=== PATIENT | female | born 1980 | race Caucasian/White ===

== ENCOUNTER 2019-07-14 16:22 | Emergency (ER) | payer OTHER ==
[2019-07-14] MEDS ORDERED: XYLOCAINE 1% HCL 20 ML MDV IJ ONE (16:23)
--- NOTE | 2019-07-14 16:35 | ERPHSYRPT ---
- History of Present Illness Time Seen by Provider: 07/14/19 16:25 Source: patient, family Physician History: cough, congestion, mild shortness of breath and a sore throat for the last 2 days. Daughter has a bronchitis. It hurts to breathe at times. Also has a swelling on Left Mid back and she is concerned about it Timing/Duration: day(s) (2) Cough Quality/Degree: moderate, productive cough Possible Cause: occasional episodes Modifying Factors: Improves With: coughing, deep breath Associated Symptoms: cough, earache, shortness of breath, sore throat, No fever , No chills, No chest pain/soreness, No dizziness, No facial pain, No headache, No lightheadedness, No muscle aches, No nasal congestion, No nasal drainage, No sinus infection International travel in last 2 weeks: No Allergies/Adverse Reactions: No Known Drug Allergies Allergy (Unverified 07/14/19 16:28) - Review of Systems Constitutional: No Fever, No Chills Eyes: No Symptoms Ears, Nose, & Throat: No Symptoms Respiratory: Cough, No Dyspnea Cardiac: No Chest Pain, No Edema, No Syncope Abdominal/Gastrointestinal: No Abdominal Pain, No Nausea, No Vomiting, No Diarrhea Genitourinary Symptoms: Other (LMP 2 weeks ago. Denies any chance of being . Does not want to be tested. Has a history of T.L), No Dysuria Musculoskeletal: Other (swelling on the left mid back for months it has grown bigger recently.), No Back Pain, No Neck Pain Skin: No Rash Neurological: No Dizziness, No Focal Weakness, No Sensory Changes Psychological: No Symptoms Endocrine: No Symptoms All Other Systems: Reviewed and Negative - Nursing Vital Signs Nursing Vital Signs: Initial Vital Signs Temperature 98 F 07/14/19 16:23 Pulse Rate 103 H 07/14/19 16:23 Respiratory Rate 18 07/14/19 16:23 Blood Pressure 146/91 07/14/19 16:23 O2 Sat by Pulse Oximetry 100 07/14/19 16:23 Pain Scale Pain Intensity 4 - Physical Exam General Appearance: no apparent distress, alert, other (patient examined in the presence of her her and daughter.) Eye Exam: PERRL/EOMI, eyes nml inspection Ears, Nose, Throat Exam: normal ENT inspection, TMs normal, pharynx normal, moist mucous membranes Neck Exam: normal inspection, non-tender, supple, full range of motion Respiratory Exam: normal breath sounds, lungs clear, No respiratory distress Cardiovascular Exam: regular rate/rhythm, normal heart sounds Gastrointestinal/Abdomen Exam: soft, No tenderness Back Exam: normal inspection, No CVA tenderness, No vertebral tenderness Extremity Exam: normal inspection, normal range of motion Neurologic Exam: alert, oriented x 3, cooperative, normal mood/affect, sensation nml, No motor deficits Skin Exam: normal color, warm, dry, No rash Lymphatic Exam: No adenopathy SpO2 Interpretation: normal O2 Delivery: Room Air - CT Exams Chest CT Interpretation: Discussed w/radiologist, Other (nothing acute) Ordered Tests: Active Orders 24 hr Category Date Time Status CHEST WITHOUT CONTRAST [CT] Stat Exams 07/14/19 16:41 Taken Respiratory Therapy Assessment ONCE RT 07/14/19 16:47 Active Medication Summary Generic Name Dose Route Start Last Admin Trade Name Freq PRN Reason Stop Dose Admin Prednisone 20 mg 07/15/19 16:45 07/14/19 17:22 Deltasone 20 Mg PO 07/15/19 16:46 20 mg STAT ONE Administration Discontinued Medications Generic Name Dose Route Start Last Admin Trade Name Freq PRN Reason Stop Dose Admin Albuterol/Ipratropium 3 ml 07/14/19 16:35 07/14/19 16:44 Duoneb 0.5-3 Mg/3 Ml Neb IH 07/14/19 16:36 3 ml STAT ONE Administration Albuterol/Ipratropium Confirm 07/14/19 16:41 Duoneb 0.5-3 Mg/3 Ml Neb Administered 07/14/19 16:42 Dose 3 ml IH .STK-MED ONE Azithromycin 500 mg 07/14/19 16:39 07/14/19 17:23 Zithromax 250 Mg Tablet PO 07/14/19 16:40 500 mg STAT ONE Administration Azithromycin Confirm 07/14/19 17:05 Zithromax 250 Mg Tablet Administered 07/14/19 17:06 Dose 250 mg .ROUTE .STK-MED ONE Azithromycin Confirm 07/14/19 17:24 Zithromax 250 Mg Tablet Administered 07/14/19 17:25 Dose 250 mg .ROUTE .STK-MED ONE Ceftriaxone Sodium 1,000 mg 07/14/19 16:39 07/14/19 17:25 Rocephin 1000 Mg Inj IM 07/14/19 16:40 1,000 mg STAT ONE Administration Ceftriaxone Sodium Confirm 07/14/19 17:05 Rocephin 1000 Mg Inj Administered 07/14/19 17:06 Dose 1,000 mg .ROUTE .STK-MED ONE Prednisone Confirm 07/14/19 17:05 Deltasone 20 Mg Administered 07/14/19 17:06 Dose 20 mg .ROUTE .STK-MED ONE - Progress Progress: improved Air Movement: good Progress Note: 07/14/19 18:19 consultation to quit smoking. Also discussed the CT results with the patient and told her to follow up with PCP so that they can get her facial a detailed report of the CAT scan. Clinically the swelling she has it looks like a lipoma. Blood Culture(s) Obtained: No Antibiotics given: No Counseled pt/family regarding: diagnosis, need for follow-up, rad results, smoking cessation - Departure Departure Disposition: Home Clinical Impression: Lipoma of back Acute bronchitis Qualifiers: Bronchitis organism: unspecified organism Qualified Code(s): J20.9 - Acute bronchitis, unspecified Condition: Fair Critical Care Time: No Referrals: SARIAH CHEN [Primary Care Provider] - 07/16/19 Instructions: Cough, Adult (DC), Acute Bronchitis Additional Instructions: ffollowup with PCP on the CT scan results and also follow up with surgeon for further evaluation of lipoma on her back. Prescriptions: Albuterol 8 gm Mdi Hfa [Ventolin Hfa MDI] 8 gm IH Q6HPRN PRN #1 inh PRN Reason: Shortness Of Breath Azithromycin 250 mg [Zithromax 250 MG TABLET] 250 mg PO ZPACK #6 tablet
[2019-07-14] MEDS ORDERED: DUONEB 0.5-3 MG/3 ml Neb IH ONE (16:41)
[2019-07-14] MEDS: DUONEB 0.5-3 MG/3 ml Neb IH ONE (16:44)
[2019-07-14] MEDS ORDERED: Zithromax 250 MG TABLET ONE ×2 (17:05→17:24)
[2019-07-14] MEDS ORDERED: DELTASONE 20 MG ONE (17:05)
[2019-07-14] MEDS ORDERED: Rocephin 1000 MG INJ ONE (17:05)
[2019-07-14] MEDS: DELTASONE 20 MG PO ONE (17:22)
[2019-07-14] MEDS: Zithromax 250 MG TABLET PO ONE (17:23)
[2019-07-14] MEDS: Rocephin 1000 MG INJ IM ONE (17:25)
[2019-07-14 18:06] VITALS: BP 99/65; PULSE 86; O2SAT 99
--- NOTE | 2019-07-15 09:12 | XRAY ---
Indication: Cough and congestion. Left back lump. Multiple contiguous axial images obtained through the chest without contrast as ordered. Comparison: None Lungs are inflated with tiny right middle and left lower lobe calcified granulomas. Minimal right middle lobe and lingula fibrosis/scarring. No suspicious pulmonary mass, infiltrate, or effusion. Heart is not enlarged. Aorta is normal in course and caliber. Mediastinal/subcarinal calcified nodes. No pathologic mediastinal lymphadenopathy. Bony thorax intact. There is a 1.6 x 4.4 x 3.1 cm intramuscular lipoma involving the latissimus dorsi just posterior to the left 9/10 ribs. Limited upper abdomen demonstrates tiny calcified splenic granulomas. Impression: 1. Evidence for old granulomatous disease. 2. Left latissimus dorsi intramuscular lipoma. 3. Remaining CT chest without contrast exam is negative. CTDI 7.00
== END 2019-07-14 19:00 | disposition home or self-care (01) ==
LOC: ED 16:22
DX: D17.1 Benign lipomatous neoplasm of skin and subcutaneous tissue of trunk (principal); J20.9 Acute bronchitis, unspecified
CPT/HCPCS: 71250; 94640; 96372; 99284; J0696; A9270-GY